=== PATIENT | male | born 1975 | race Caucasian/White ===

== ENCOUNTER → 2019-01-28 17:56 | Outpatient (CLI) | payer OTHER, SELFPAY ==
--- NOTE | 2019-01-28 17:57 | DI.MRI.S_ITS ---
PROCEDURE: MR LUMBAR SPINE WO CON INDICATIONS: Lumbar radiculopathy. TECHNIQUE: Noncontrast sagittal T1 spin echo and T2 fast echo, sagittal STIR, axial T1 and T2 fast spin echo through the lumbar spine. In cases with scoliosis, additional coronal T2 fast spin echo may be performed. COMPARISON: [facility], MR, L-SPINE WITHOUT CONTRAST, 06/04/2016, 12:38. [facility], MR, L-SPINE WITHOUT CONTRAST, 03/26/2011, 19:32. FINDINGS: Image quality: Excellent. Alignment and Curvature: There is normal bony alignment. Bone Marrow: Marrow is of normal overall signal. No acute vertebral body compression fractures. Spinal Cord: Conus medullaris terminates at the T1 level. Visualized cord demonstrates normal signal and size. Paraspinous Soft Tissues: No paravertebral masses. L1-L2: Normal appearance. L2-L3: Normal appearance. L3-L4: Normal appearance except for mild facet osteoarthritis without significant spinal or foraminal stenosis. L4-L5: There is a mild degree of degenerative disc it reduction and desiccation, and moderate facet osteoarthritis that results in mild narrowing of the neural foramen symmetric bilaterally with potential for mild impingement on the course of the L4 nerve roots equally. L5-S1: The degenerative disc disease at this level is moderately severe with [id number] articulation between the adjacent endplates. Mild grade 1 retrolisthesis is noted and facet osteoarthritis at this level is moderately severe on the left and moderate on the right. This results in asymmetric foraminal stenosis, moderately severe on the left and mild to moderate on the right. IMPRESSION: No trauma found, no disc herniation identified. There is a mild to moderate degree of degenerative disc disease best seen at L4-5 and especially L5-S1 where the foraminal stenosis is asymmetric, greater on the left than the right. Asymmetric radiculopathy involving the L5 nerve root likely is present on the left. Dictated by: Bowen Ott M.D. on 01/29/2019 at 10:40 Approved by: Bowen Ott M.D. on 01/29/2019 at 10:45
== END ==
PROVIDERS: Family Provider Family Medicine; PCP Family Medicine; Visit Provider Family Medicine
DX: M51.16 Intervertebral disc disorders with radiculopathy, lumbar region (principal); M51.17 Intervertebral disc disorders with radiculopathy, lumbosacral region; M48.061 Spinal stenosis, lumbar region without neurogenic claudication; M48.07 Spinal stenosis, lumbosacral region
CPT/HCPCS: 72148

== ENCOUNTER → 2019-03-24 08:24 | Outpatient (CLI) | payer OTHER, SELFPAY ==
[2019-03-24 08:36] LABS: Add Manual Diff / Slide Review NO; Basophils Absolute Auto 0 /uL (0-100); Basophils Percent Auto 0.5 % (0-2); Eosinophils Absolute Auto 100 /uL (0-450); Eosinophils Percent Auto 1.2 % (2-4); Hematocrit 42.4 % (41-53); Hemoglobin 14.3 g/dL (13.5-17.5); Lymphocytes Absolute Auto 1800 /uL (1100-4500); Lymphocytes Percent Auto 21.7 % (25-40); Mean Corpuscular HGB Conc 33.8 % (30-36); Mean Corpuscular Volume 88.8 fL (80-100); Monocytes Absolute Auto 600 /uL (0-900); Monocytes Percent Auto 6.7 % (3-14); Neutrophils Absolute Auto 5800 /uL (1500-7000); Neutrophils Percent Auto 69.9 % (50-75); Platelet Count 301 X10^3/uL (150-400); Red Blood Cell Count 4.77 X10^6/uL (4.5-5.9); Red Cell Distribution Width 13.7 % (11.6-14.8); White Blood Cell Count 8.3 X10^3/uL (4.5-11.0)
== END ==
PROVIDERS: Family Provider Family Medicine; PCP Family Medicine; Visit Provider Orthopaedic Surgery
DX: D72.89 Other specified disorders of white blood cells (principal)
CPT/HCPCS: 36415; 85025

== ENCOUNTER 2019-03-31 06:08 | Inpatient (IN) | payer OTHER, SELFPAY ==
[2019-03-17 11:31] VITALS: BMI 25.1
[2019-03-31] VITALS (18 sets, daily range): BP systolic 101–148; BP diastolic 66–95; PULSE 66–118; RESP 10–18; TEMP 36–37.7; O2SAT 91–100; BMI 22.6
--- NOTE | 2019-03-31 | DI.RAD.S_ITS ---
PROCEDURE: XR LUMBAR SPINE 2-3V INDICATIONS: L5-S1 TLIF TECHNIQUE: 2 operative views of the lumbar spine were acquired. COMPARISON: None. FINDINGS: AP and lateral operative films demonstrated posterior lateral duke and pedicle screw fixation and interbody disc material placement at L5-S1. IMPRESSION: Operative imaging demonstrates fusion at L5-S1. Dictated by: Keo Mcintyre M.D. on 03/31/2019 at 10:50 Approved by: Keo Mcintyre M.D. on 03/31/2019 at 10:51
[2019-03-31] MEDS: LACTATED RINGERS 1,000 ML 42 ML IV (07:02)
--- NOTE | 2019-03-31 07:20 | PM.PREOP ---
Pre-operative Note Interval Note History & Physical reviewed/Exam performed by Physician: Yes Changes to H&P: No
[2019-03-31] MEDS: CEFAZOLIN 2 GM/100 ML FROZ.PIGGY IV ×2 (07:55→16:22)
--- NOTE | 2019-03-31 08:31 | SUR.OPER ---
Prone on spine table, head in foam head support, padded chest and pelvic supports, gel pad at knees, lower legs supported by pillows; nipples, genitalia and toes free of pressure, arms secured on foam padded arm boards at <90 degrees abduction. Tape over blanket at thigh secured to table.
[2019-03-31] MEDS: THROMBIN (RECOMBINANT) 5,000 UNIT VIAL 5000 UNIT TOP (08:47)
[2019-03-31] MEDS: SODIUM CHLORIDE 0.9% 1,000 ML, GENTAMICIN 80 MG IRR (08:47)
[2019-03-31] MEDS: VANCOMYCIN 1,000 MG VIAL 1000 MG TOP (08:48)
[2019-03-31] MEDS: BUPIVACAINE 0.5% (PF) 4 ML, MORPHINE-PF 4 MG, BUTORPHANOL 1 MG, fentaNYL 100 MCG INJ (09:50)
--- NOTE | 2019-03-31 10:35 | PC.NURSE ---
Day shift: Pt not on AC unit at this time.
--- NOTE | 2019-03-31 10:44 | PM.OP.1 ---
Operative Date/Time/Diagnoses Date of procedure: 03/31/19 Time of procedure: 10:44 Pre-op diagnosis: Lumbar stenosis with radiculopathy Post-op diagnosis: same Procedure & Clinicians Procedure: L5-S1 TLIF (post/post innerbody fusion) with cage L5, S1 screws iliac crest bone graft aspirate L5-S1 laminectomy use of microscope placement of epidural catheter Same procedure as scheduled: Yes Indications: 43 year old male with intractable pain from lumbar stenosis.They had failed conservative management and requested operative intervention. Risks and benefits of surgery were discussed and appropriate consents were obtained. Surgeon: Amadeo Capellan Ingredient Scaler: Francia Vuong Anesthesia Type: General Operative Notes Findings: none Closure Type: primary Specimen(s): none sent Prosthetic devices, grafts, tissues, transplants, or devices: Globus Rise cage and MIS Creo screws Applied: catheter Estimated Blood Loss (mL): 50 Blood products transfused: none Procedure in detail: The patient was brought to the operating room and intubated on the table. A time-out was performed. They were then rolled over to the well-padded Lucius table in the prone position. Preoperative antibiotics were given. The back was prepped and draped in the standard sterile fashion. Using fluoroscopy, a 4 cm longitudinal incision was made to the left of the midline. We used Bovie to come down to and split the lumbodorsal fascia. Using fluoroscopy and monitoring, we then percutaneously placed Jamshidi needles down the pedicles of L5 and S1 on theleft side. These were changed out to guidewires and then we tapped and then placed the Globus Creo MIS screw shanks. We then opened up the retractors and used Bovie to clear up the posterolateral gutter as well as medially along the lamina to the spinous processes. A bur was used to decorticate the transverse process and ala. We brought in the microscope. Using a combination of bur and Kerrison rongeurs, a laminectomy was performed from the left side. We cleared over past the midline and carefully depressed the dura until we were able to decompress the opposite side. We cleared out the neural foramen. This completed the laminectomy at L5S1. We then began the TLIF prep. We finished off the facetectomy and cleared all the way back to the edge of the pedicles. We carefully cleaned up the remainder of the foramen until we could easily retract the exiting root as well as clearing medially below the dura and expose the disc space. The disc was prepped with bipolar and then an annulotomy was performed. We performed a diskectomy using a combination of paddles, lissette, pituitaries, and curettes. We distracted the disc using a paddle and locked the retractor in an open position. We then filled the disc space with Trifecta bone graft. We then placed the 7x30mm Globus Rise cage under fluoroscopy and then filled this in with more bone graft. The distraction on the retractor was released to compress down. This completed the posterior interbody fusion portion of the TLIF at L5S1. We then placed the screw heads, duke, and locked down the set screws. The wound was copiously irrigated. A small stab incision was made over the PSIS. We used a Jamshidi needle to aspirate several mL of bone marrow from the pelvis. This was mixed with the remaining Osteocel and combined with all of the locally harvested bone graft and placed in the posterolateral gutter for the posterior fusion of the TLIF at L5S1. An epidural catheter was then placed in the spinal canal by carefully depressing the dura and advancing it 6 cm cephalad under the remaining lamina without resistance. The muscle fascia was closed. The catheter was then injected with a solution containing 4 mL of 0.5% Marcaine, 1 mg Stadol, 4 mg Duramorph, and 100 mcg of fentanyl. This was injected without resistance and the catheter was pulled. We then went to the opposite side. Again using fluoroscopy, a 3 cm incision was made and Bovie was used to come down to split the fascia. Using neural monitoring and fluoroscopy, Jamshidi needles were advanced down the pedicles ofL5 and S1 on the right side. These were switched over guidewires, tapped, and screws placed. We then placed a duke and locked the set screws on this side. The wound was irrigated. The fascia was closed. Vancomycin powder was placed in the wounds. The superficial and skin were closed. A sterile dressing was placed. The patient was then rolled over extubated and brought to recovery room without complications. Complications: none Post-operative Condition: stable Disposition: PACU Plan for aftercare: inpatient. Up with physical therapy.
[2019-03-31] MEDS: HYDROMORPHONE 2 MG INJ 0.5 MG IV ×4 (11:10→11:30)
[2019-03-31] MEDS: fentaNYL 100 MCG/2 ML INJ 50 MCG IV (11:36)
[2019-03-31] MEDS: OXYCODONE IR 5 MG TABLET PO ×5 (11:41→20:13)
--- NOTE | 2019-03-31 13:16 | SUR.PHASEI ---
Pt transferred to room 202 via bed with all belongings. Last vital signs stable, pain improving and at tolerable level for pt; see flowsheet documentation for details. Report given to FÉLIX Liu prior to transfer. Noe to bedside upon arrival to room 202; handoff assessment completed. FÉLIX Liu to assume care of pt at this time.
[2019-03-31] MEDS: hydrOXYzine pamoate 25 MG CAPSULE PO (13:31)
[2019-03-31] MEDS: LACTATED RINGERS 1,000 ML 125 ML IV ×2 (13:32→21:51)
[2019-03-31] MEDS: CELECOXIB 200 MG CAPSULE 400 MG PO (13:34)
--- NOTE | 2019-03-31 13:52 | CM.DANOTE ---
DCP brief assessment: EMR reviewed: Patient is a 43 yr old male admitted for L5-S1 TLIF. performed by Dr. Capellan. patients PCP is listed as Otilia Rider. Patients next of kin is listed as Felipe Ibanez (spouse) [phone]. PT and OT evaluations pending. Patient was not in his room at time of CM visit. Insurance: 1st payer: [employer] 2nd payer: self pay. Discharge plan: patient was not in his room at time of CM visit. Patient will need a brief in-person assessment tomorrow by CM department 04/01/2019. D/c planning to be completed once patient has PT and OT evals. Génesis Bucio RN. Discharge Planning/Care Management CM Discharge Assessment Start: 03/31/19 13:48 Freq: Status: Active Protocol: Document 03/31/19 13:49 HS (Rec: 03/31/19 13:51 HS [id number]) Discharge Planning Assessment Assigned Radiochemical Technician Génesis Bucio RN DPOA/Assigned Designee Name Felipe Ibanez (Spouse) Advance Directives? No: Pt declines further information History Provided By Medical Record Prior Living Arrangements House Household Members spouse,children Comment Patient not in room at time of CM Visit. Therapy evals pending Discharge Plan Home Transportation Arrangement Family Review Status In Process Next Review Type Continued Stay Review Pre-Anesthesia Assessment Start: 03/17/19 11:31 Freq: Status: Active Protocol: Document 03/17/19 11:31 CAB (Rec: 03/17/19 11:51 CAB [id number]) Pre-Anesthesia Assessment Patient Also Known As (SHANTEL Pop Patient Information Reviewed Via Phone Assessment Assessment Completed With Patient Primary Care Provider Otilia Rider Seen Specialist in Last 12 Months Yes Specialist Seen Orthopedist Primary Language Hungarian Acute Care Assistant Required No Height 180.34 cm Weight 81.647 kg Body Mass Index (BMI) 25.1 Hearing Ability Normal Visual Impairment No Limitations Visual Assist None Dentition Type Teeth, Natural Present,Teeth, Missing Barriers to Learning None Hx Anesthesia Reactions No Hx Family Anesthesia Reaction No Hx Malignant Hyperthermia No Hx Blood Transfusions No Anesthesia Review Requested No alcohol intake current Alcohol Intake Frequency Other: Occasional Smoking Status Former smoker Tobacco type cigarettes how long ago did patient quit smoking Quit 8-10 years ago Substance Use Type does not use Pain Present Pain Reported Musculoskeletal Symptoms Abnormal Gait,Back Pain, Difficulty Walking,Muscle Cramps,Muscle Spasms,Muscle Weakness,Neck Pain,Numbness, Radiating Pain into Limb, Tingling History of Falling (Recent or History of No ) Patient is completely paralyzed or No completely immobile Mental Status Oriented to own ability Is patient on oxygen? No Does patient have BENITEZ/SOB No Hx Sleep Apnea No Currently Taking a Beta Lizzy No Can You Climb a Flight of Stairs Without Yes SOB Hx Chest Pain No Hx SOB No Hx Syncope or Dizziness No Anti-Coagulant Therapy No Has a Surgical Services Asst No Cardiac Testing No Hx Pacemaker/ICD No Pacemaker Rep Required? No Cardiac Clearance Received Not Applicable Diet Type At Home Regular dysphagia No Urinary Catheter Present No Hx Urinary Self Catheterization No Diabetes No Hx Drug Resistant Organism No Presence of External or Internal Medical Yes: Hardware left hand Devices Have you traveled outside the [facility] in the last 30 days? Marital Status Lives With spouse,children Prior Living Arrangements House Number of Floors (Floors) One Floor Support System Significant Other Does the Patient Have Assistance After Yes Surgery Patient Discharge Plan Description Return Home Comment Pt advised 2 day length of stay per surgeon Feels Safe in Current Environment Yes Been Physically Hurt or Threatened By a No Person in Current Environment Do you have thoughts of harming yourself None or others? Are you currently considering suicide? No Do you have a plan to hurt yourself or No Plan others? Do You Have Any Spiritual Beliefs That No May Affect Your HC Choices? Do You Have Any Cultural Practices That No May Affect Your HC Choices? Comment Quaker Who Can We Speak to About Patient's Care Family, friends Identifying Code for Release of Patient Declines to issue Information Health Care Proxy/Next of Kin Felipe () Health Care Proxy Emergency Contact Name Felipe () Emergency Contact Advance Directives? No: Pt declines further information PAC Instructions Do not shave/clip surgical site,Durable medical equipment ,Medications to take/avoid, Nasal antibiotic,No ETOH/ petroleum product on skin DOS, NPO,Pre-surgical wash,Sturdy shoes/comfortable clothes,Do not bring valuables and remove jewelry
[2019-03-31] MEDS: HYDROMORPHONE 0.5 MG INJ IV ×3 (14:18→20:21)
--- NOTE | 2019-03-31 17:08 | PT.IIE ---
Current Diagnoses Spinal stenosis, lumbar region with neurogenic claudication (03/31/19) Strain of muscle, fascia and tendon of lower back, subsequent encounter (03/31/19) Surgery Performed Operation Date: 03/31/19 07:45 Actual Procedures p L5S1 laminectomy & instrumentated fusion (TLIF) w/ bone graft - Amadeo Capellan MD Surgical History (Last Updated 03/17/19 @ 11:35 by Ludy Mejia, RN) History of oral surgery Hx of hand surgery (Acute) Hx of removal of neck cyst (Resolved 2013) Status post hernia repair Status post knee surgery Medical History (Last Updated 03/17/19 @ 11:38 by Ludy Mejia RN) ADHD (attention deficit hyperactivity disorder) (Chronic Unknown) Ankle pain (Resolved Unknown) Chronic back pain (Chronic Unknown) Fractures (Resolved 2002) Generalized headaches (Chronic Unknown) HTN (hypertension) (Acute) Insomnia (Acute) Migraines (Chronic Unknown) Shoulder pain (Resolved Unknown) Physical Therapy Inpatient Evaluation/Re-Eval M1 PT/OT-IP Prior Functional Status Start: 03/31/19 14:21 Freq: NEEDED Status: Active Protocol: Document 03/31/19 16:48 AW (Rec: 03/31/19 17:08 AW [email or web address]) Medical Review Prior Functional Status Medical History Reviewed Yes Diet/Fluid Consistency Regular Communication Able to make needs known Mobility and Gait Independent with all functional mobility. No need for assistive device. No limit to ambulation distance Activities of Daily Living and IADL's Independent Social History Household Members spouse,children Living Arrangements House Number of Floors (Floors) One Floor Number of Stairs To Enter/Railing? 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 [employer] M2 PT-IP Current Condition Start: 03/31/19 14:21 Freq: NEEDED Status: Active Protocol: Document 03/31/19 16:48 AW (Rec: 03/31/19 17:08 AW [email or web address]) Physical Therapy Current Condition Current Condition Evaluation Date 03/31/19 Treatment Diagnosis s/p L5-S1 laminectomy, TLIF Precautions Lumbar Precautions Log Roll,No Twisting,Limit Bending,Lifting Restriction of 10 lbs,Gait Belt above Incisional Area Weight Bearing Status Weight Bearing Status Full Weight Bearing M3 PT-IP Subjective Start: 03/31/19 14:21 Freq: NEEDED Status: Active Protocol: Document 03/31/19 16:48 AW (Rec: 03/31/19 17:08 AW [email or web address]) Subjective Physical Therapy Visit Type Type Initial Evaluation Visit Start Time 16:15 Visit Stop Time 16:44 Total Visit Minutes 29 Notes Coordinated visit with RN for medication timing Number of PLUG CUTTER Visits 0 Physical Therapy Visit Comments Patient Comments Pt has pain at rest but is willing to participate with PT Patient Goals Pt plans to discharge home with his 's assistance. She is planning to take a few days off from work when pt discharges. Therapy Pain Assessment Pain When Pain Assessed During Mobility Pain Present Pain Present Pain Reported Location Lower Back Intensity 5 Scale Used Numeric (1 - 10) Pain Management Techniques Modification of Treatment,Re- positioning,Timing of Activity with Medications M4 PT-IP Mobility and Gait Start: 03/31/19 14:21 Freq: NEEDED Status: Active Protocol: Document 03/31/19 16:48 AW (Rec: 03/31/19 17:08 AW [email or web address]) PT-Bed Mobility Assessment Rolling Type of Rolling Log Rolling Level of Assist Standby Assistance Supine to Sit Supine to Sit Standby Assistance Scooting Scooting to Edge of Bed Standby Assistance PT-Transfer Assessment Sit to and From Stand Sit to and from Stand Contact Guard Assistance,1 Person Assistance,Use of Upper Extremities Equipment Transfer Assistive Device Gait Belt,Front Wheeled Walker Orthotic/Prosthetic Devices or Brace: No Transfers Transfer Destination Chair Transfer Technique pt ambulated with FWW Transfer Ability Level of Assist Contact Guard Assistance Comments Mobility Comments Pt required CGA for log roll and sit to stand transfer. Also required verbal cues for sequencing. He was able to maintain neutral posture throughout. Gait Assessment Gait Gait Assistance Required: Standby Assistance Distance (Feet) 100 Able to Maintain Weight Bearing Status Yes During Gait Assistive Devices Assistive Device Gait Belt,Front Wheeled Walker Orthotic/Prosthetic Devices or Brace: No Gait Deviations General Gait Pattern Decreased Stride Length, Decreased Feet Clearance Factors Limiting Gait Function Factors Limiting Gait Function Decreased Activity Tolerance, Decreased Strength,Pain Comments Gait Comments Pt required SBA for ambulation using FWW. Gait was characterized by slow movement and decreased step length bilaterally PT-Balance Assessment Sitting Balance and Reactions Static Sitting Balance Ability Good Dynamic Sitting Balance Ability Good Standing Balance and Reactions Static Standing Balance Ability Good Dynamic Standing Balance Ability Good Device Used FWW M5 PT-IP Objective Assessments Start: 03/31/19 14:21 Freq: NEEDED Status: Active Protocol: Document 03/31/19 16:48 AW (Rec: 03/31/19 17:08 AW [email or web address]) Orientation Orientation/Cognition Level of Alertness Alert Orientation Name,Date,Place,Situation Language Function Ability No Deficits Noted Safety Awareness Understands Safety Issues Memory Description No Deficits Noted Gross Range of Motion Upper Extremity ROM Assessment Within Functional Limits Lower Extremity ROM Assessment Within Functional Limits Strength Upper Extremity Strength Assessment Within Functional Limits Lower Extremity Strength Assessment Within Functional Limits Coordination Assessment Gross Coordination Gross Coordination WNL Sensation Assessment Sensation Gross Sensation WNL Comments Sensation Comments No deficits on exam. M6 PT-IP Treatment Start: 03/31/19 14:21 Freq: NEEDED Status: Active Protocol: Document 03/31/19 16:48 AW (Rec: 03/31/19 17:08 AW [email or web address]) Physical Therapy Treatment Equipment Issued Equipment Type and Company Educated pt on PT plan of care , post-op spinal precautions, and safe use of FWW M7 PT-IP Assessment and Plan Start: 03/31/19 14:21 Freq: NEEDED Status: Active Protocol: Document 03/31/19 16:48 AW (Rec: 03/31/19 17:08 AW [email or web address]) PT Summary Assessment and Plan Potential Rehabilitation Potential Good Status of Condition at Evaluation Evolving Summary Impairments Pain,Bed Mobility,Transfers, Gait,Activity Tolerance Assessment Summary Pt is a 43 yo man seen on POD0 following L5-S1 laminectomy/ TLIF. PLOF: Pt was independent in all regards with no need for assistive device and no limitation in ambulation distance or terrain. CLOF: Pt required CGA for log roll and transfers, SBA for ambulation with FWW. Pt is steady of his feet with FWW, including turns with good attention to spinal precautions. PT recommends discharge to home with spouse assist and outpatient PT when he meets functional goals of this plan of care. Goals Bed Mobility Goal Standby Assistance Transfer Goal Standby Assistance Gait Goal Standby Assistance,Front Wheel Walker Gait Distance 150 Other Goals up/down 5 steps with unilateral railing (either side) SBA Days to Meet Goals 1 Frequency of Treatment Frequency Of Treatment Twice a Day Treatment Plan Physical Therapy Treatment Plan Bed Mobility Training,Transfer Training,Gait Training, Therapeutic Exercise,Balance Retraining,Post Op Education, Discharge Planning,Hot or Cold Pack,Neuromuscular Re-ed, Coordination Retraining,Manual Therapy Other Recommendations and Next Treatment progress gait distance with Focus FWW; stair training Recommendations To Nursing Amount of Assist Needed Standby Assistance,1 Person Assist Discharge Recommendations PT Discharge Recommendations Home with Assistance, Outpatient PT
[2019-03-31] MEDS: CELECOXIB 200 MG CAPSULE PO (20:13)
[2019-03-31] MEDS: SENNOSIDES 8.6 MG TABLET 17.2 MG PO (20:13)
[2019-03-31] MEDS: GABAPENTIN 300 MG CAPSULE PO (20:13)
[2019-03-31] MEDS: DOCUSATE 100 MG CAPSULE PO (20:13)
[2019-04-01] MEDS: CEFAZOLIN 2 GM/100 ML FROZ.PIGGY IV (00:06)
[2019-04-01 01:22] VITALS: BP 122/72; PULSE 80; RESP 18; TEMP 36.8; O2SAT 97
[2019-04-01] MEDS: OXYCODONE IR 5 MG TABLET 10 MG PO ×6 (01:34→21:27)
[2019-04-01] MEDS: hydrOXYzine pamoate 25 MG CAPSULE PO ×2 (01:34→09:27)
--- NOTE | 2019-04-01 03:27 | PC.NURSE ---
Addendum entered by Jillian Curran R.N. 04/01/19 03:39: pt's island dressing is clean/dry and intact. Original Note: Pt VSS, lung sounds clear bilaterally. Pt has 7/10 pain level medicated w/ oxycodone 10mg Q4, denies nausea. Pt refuses to wear SCD's, was educated about the use of SCD's, is using IS. Pt has been instructed about the use of his call light and it is within reach.
[2019-04-01 05:50] VITALS: BP 114/64; PULSE 63; RESP 16; TEMP 36.3; O2SAT 97
[2019-04-01 06:00] LABS: Hematocrit 32.3 % (41-53); Hemoglobin 11.3 g/dL (13.5-17.5)
--- NOTE | 2019-04-01 08:02 | PM.PNPO.1 ---
Subjective Subjective Date Patient Seen: 04/01/19 Time Patient Seen: 08:02 Interval history: He is doing well. Back pain 10/08. No leg pain Exam Vital Signs (past 8 hours): - 04/01/19 01:22 04/01/19 05:50 Temperature 98.3 F 97.4 F L Pulse Rate 80 63 Respiratory Rate 18 16 Blood Pressure 122/72 114/64 Pulse Oximetry 97 97 Oxygen Delivery Method Room Air Oxygen Flow Rate 0 Const Orientation: alert and oriented x3 Back/Spine/Pelvis Other: CDI. 5/5 motor both lower extremities. Objective Labs Result Diagrams: 04/01/19 05:40 Labs: Laboratory Results - last 24 hr 04/01/19 05:40 Hgb 11.3 L Hct 32.3 L Assessment & Plan Post-op Postoperative Procedures: Procedures Operation Date: 03/31/19 07:45 Actual Procedures Side Surgeon p L5S1 laminectomy & instrumentated fusion (TLIF) w/ bone graft Amadeo Capellan MD he is doing well. Mobilize. Anticipate discharge tomorrow. Quality VTE Deep Vein Thrombosis/Pulmonary Embolism Present on Admission: No
[2019-04-01 09:01] VITALS: BP 154/93; PULSE 62; RESP 16; TEMP 37.1; O2SAT 98
[2019-04-01] MEDS: CELECOXIB 200 MG CAPSULE PO ×2 (09:25→21:27)
[2019-04-01] MEDS: GABAPENTIN 300 MG CAPSULE PO ×2 (09:26→21:27)
[2019-04-01] MEDS: DOCUSATE 100 MG CAPSULE PO ×2 (09:26→21:26)
--- NOTE | 2019-04-01 10:47 | PC.NURSE ---
Addendum entered by Dyan Lyn R.N. 04/01/19 13:43: MS/PAIN - ambul w/phys therapy using fww into hallway, gait steady, ret to chair, after lunch describes back discomfort 5 0n scale 0/10, given 10mg oxycodone and 650mg po tylenol for afternoon mobilization with PT. Original Note: AM NOTE - awakens easily, after breakfast, given 10mg po oxycodone for back discomfort 6 on scale 0/10, states when sat up earlier did have spasms and added 25mg po vistaril, + cms, hx sciatica and some numbness lle, able wiggle toes, declines footie scd now and rationale explained for their use while in bed, denies nausea, bs clear, using is, hr 88, holloway w/clear yellow urine, barrier dsg intact with some shadow drainage, no leakage.
--- NOTE | 2019-04-01 11:43 | PT.IPTN ---
Current Diagnoses Spinal stenosis, lumbar region with neurogenic claudication (03/31/19) Strain of muscle, fascia and tendon of lower back, subsequent encounter (03/31/19) Surgery Performed Operation Date: 03/31/19 07:45 Actual Procedures p L5S1 laminectomy & instrumentated fusion (TLIF) w/ bone graft - Amadeo Capellan MD Physical Therapy Treatment Note M2 PT-IP Current Condition Start: 03/31/19 14:21 Freq: NEEDED Status: Active Protocol: Document 03/31/19 16:48 AW (Rec: 03/31/19 17:08 AW [email or web address]) Physical Therapy Current Condition Current Condition Evaluation Date 03/31/19 Treatment Diagnosis s/p L5-S1 laminectomy, TLIF Precautions Lumbar Precautions Log Roll,No Twisting,Limit Bending,Lifting Restriction of 10 lbs,Gait Belt above Incisional Area Weight Bearing Status Weight Bearing Status Full Weight Bearing M3 PT-IP Subjective Start: 03/31/19 14:21 Freq: NEEDED Status: Active Protocol: Document 04/01/19 11:34 AW (Rec: 04/01/19 11:43 AW [email or web address]) Subjective Physical Therapy Visit Type Type Treatment Note Visit Start Time 11:16 Visit Stop Time 11:33 Total Visit Minutes 18 Notes Pt medicated 2 hours ago, but agreed to mobilize. 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 He is hoping to discharge tomorrow. Therapy Pain Assessment Pain When Pain Assessed During Mobility Pain Present Pain Present Reassessed Location Lower Back Intensity 5 Scale Used Numeric (1 - 10) Pain Management Techniques Modification of Treatment,Re- positioning,Timing of Activity with Medications M4 PT-IP Mobility and Gait Start: 03/31/19 14:21 Freq: NEEDED Status: Active Protocol: Document 04/01/19 11:34 AW (Rec: 04/01/19 11:43 AW [email or web address]) PT-Bed Mobility Assessment Rolling Type of Rolling Log Rolling Level of Assist Standby Assistance Supine to Sit Supine to Sit Standby Assistance Scooting Scooting to Edge of Bed Standby Assistance PT-Transfer Assessment Sit to and From Stand Sit to and from Stand Standby Assistance,Use of Upper Extremities Equipment Transfer Assistive Device Gait Belt,Front Wheeled Walker Orthotic/Prosthetic Devices or Brace: No Transfers Transfer Destination Chair Transfer Technique pt ambulated with FWW Transfer Ability Level of Assist Standby Assistance Comments Mobility Comments Pt required decreased level of assist for transfers. Gait Assessment Gait Gait Assistance Required: Standby Assistance Distance (Feet) 175 Able to Maintain Weight Bearing Status Yes During Gait Assistive Devices Assistive Device Gait Belt,Front Wheeled Walker Orthotic/Prosthetic Devices or Brace: No Gait Deviations General Gait Pattern Decreased Stride Length, Decreased Feet Clearance Factors Limiting Gait Function Factors Limiting Gait Function Decreased Activity Tolerance, Decreased Strength,Pain Comments Gait Comments Pt progressed gait distance using FWW SBA. Stair Climbing Assessment Evaluation Level of Assist On Stairs Standby Assistance Devices Stair Climbing Assistive Devices Right Railing Technique/Endurance Stair Climbing Direction Ascend and Descend Stair Climbing Technique Step Over Step,Step to Step Number of Steps Climbed 3 Stair Climbing Set # Repetitions (reps) 2 Comments Stair Climbing Comments Pt used bilateral rails and step over step pattern for first set, right rail only and step-to pattern for second set. Both conditions required SBA M5 PT-IP Objective Assessments Start: 03/31/19 14:21 Freq: NEEDED Status: Active Protocol: Document 03/31/19 16:48 AW (Rec: 03/31/19 17:08 AW [email or web address]) Orientation Orientation/Cognition Level of Alertness Alert Orientation Name,Date,Place,Situation Language Function Ability No Deficits Noted Safety Awareness Understands Safety Issues Memory Description No Deficits Noted Gross Range of Motion Upper Extremity ROM Assessment Within Functional Limits Lower Extremity ROM Assessment Within Functional Limits Strength Upper Extremity Strength Assessment Within Functional Limits Lower Extremity Strength Assessment Within Functional Limits Coordination Assessment Gross Coordination Gross Coordination WNL Sensation Assessment Sensation Gross Sensation WNL Comments Sensation Comments No deficits on exam. M6 PT-IP Treatment Start: 03/31/19 14:21 Freq: NEEDED Status: Active Protocol: Document 04/01/19 11:34 AW (Rec: 04/01/19 11:43 AW [email or web address]) Physical Therapy Treatment Other Treatments Other Treatment Performed Pt able to repeat back spinal precautions without cueing. M7 PT-IP Assessment and Plan Start: 03/31/19 14:21 Freq: NEEDED Status: Active Protocol: Document 04/01/19 11:34 AW (Rec: 04/01/19 11:43 AW [email or web address]) PT Summary Assessment and Plan Summary Assessment Summary Pt required decreased level of assist for all mobility and was able to progress gait distance with FWW and navigate stairs SBA. He did attempt to twist and look over his right shoulder when prompted. He needs functional reinforcement of spinal precautions. Goals Bed Mobility Goal Standby Assistance Transfer Goal Standby Assistance Gait Goal Standby Assistance,Front Wheel Walker Gait Distance 150 Other Goals up/down 5 steps with unilateral railing (either side) SBA Days to Meet Goals 1 Frequency of Treatment Frequency Of Treatment Twice a Day Recommendations To Nursing Amount of Assist Needed Standby Assistance,1 Person Assist Discharge Recommendations PT Discharge Recommendations Home with Assistance, Outpatient PT
[2019-04-01 12:30] VITALS: BP 130/70; PULSE 85; RESP 16; TEMP 37.3; O2SAT 98
[2019-04-01] MEDS: ACETAMINOPHEN 325 MG TABLET 650 MG PO ×2 (12:52→21:27)
--- NOTE | 2019-04-01 14:57 | CM.DPNOTE ---
DCP Cont: Reviewed chart. Met w/pt, explained SW role. Pt does not expect to have any SW needs upon DC but grateful for the visit. Pt feels he has support from his family for assist as needed. PT has cleared pt for return home. P: DC home when medically cleared. TIRSO
[2019-04-01 15:15] VITALS: BP 123/70; PULSE 94; RESP 18; TEMP 37.3; O2SAT 98
--- NOTE | 2019-04-01 15:19 | OT.IP.EVAL ---
Current Diagnoses Spinal stenosis, lumbar region with neurogenic claudication (03/31/19) Strain of muscle, fascia and tendon of lower back, subsequent encounter (03/31/19) Surgery Performed Operation Date: 03/31/19 07:45 Actual Procedures p L5S1 laminectomy & instrumentated fusion (TLIF) w/ bone graft - Amadeo Capellan MD Past Medical History (Last Updated 03/17/19 @ 11:38 by Ludy Mejia RN) ADHD (attention deficit hyperactivity disorder) (Chronic Unknown) Ankle pain (Resolved Unknown) Chronic back pain (Chronic Unknown) Fractures (Resolved 2002) Generalized headaches (Chronic Unknown) HTN (hypertension) (Acute) Insomnia (Acute) Migraines (Chronic Unknown) Shoulder pain (Resolved Unknown) Surgical History (Last Updated 03/17/19 @ 11:35 by Ludy Mejia RN) History of oral surgery Hx of hand surgery (Acute) Hx of removal of neck cyst (Resolved 2013) Status post hernia repair Status post knee surgery Occupational Therapy Inpatient Evaluation/Re-Eval M1 PT/OT-IP Prior Functional Status Start: 03/31/19 14:21 Freq: NEEDED Status: Active Protocol: Document 04/01/19 15:01 [facility] (Rec: 04/01/19 15:19 [facility] [id number]) Medical Review Prior Functional Status Medical History Reviewed Yes Diet/Fluid Consistency Regular Communication Able to make needs known Mobility and Gait Independent with all functional mobility. No need for assistive device. No limit to ambulation distance Activities of Daily Living and IADL's Independent Social History Household Members spouse,children Living Arrangements House Number of Floors (Floors) One Floor Number of Stairs To Enter/Railing? 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 [employer] M2 OT-IP Current Condition Start: 04/01/19 08:23 Freq: Status: Active Protocol: Document 04/01/19 15:01 [facility] (Rec: 04/01/19 15:19 [facility] [id number]) Occupational Therapy Current Condition Current Condition Evaluation Date 04/01/19 Treatment Diagnosis L5-S1 LAminectomy, TLI$ Diagnosis Onset Date 03/31/19 Post Operative Precautions Lumbar Precautions Log Roll,No Twisting,Limit Bending,Lifting Restriction of 10 lbs,Gait Belt above Incisional Area Weight Bearing Status Weight Bearing Status Weight Bear as Tolerated M3 OT- IP Subjective and Pain Start: 04/01/19 08:23 Freq: Status: Active Protocol: Document 04/01/19 15:01 [facility] (Rec: 04/01/19 15:19 [facility] [id number]) OT- Subjective Occupational Therapy Visit Type Type Initial Evaluation Visit Start Time 13:35 Visit Stop Time 14:05 Total Visit Minutes 30 Occupational Therapy Visit Comments Patient Comments Pt agreeable to do OT eval, pt 's present for end of the session. Patient/Caregiver Goals To go home. OT Pain Assessment Pain When Pain Assessed At Rest Pain Present Pain Present Pain Reported Location Lower Back Intensity 3 Scale Used Numeric (1 - 10) M4 OT- IP ADL's Start: 04/01/19 08:23 Freq: Status: Active Protocol: Document 04/01/19 15:01 [facility] (Rec: 04/01/19 15:19 [facility] [id number]) OT [id number]-[id number] General Evaluation Self-Feeding Ability Independent OT ADL-Grooming General Evaluation Grooming Ability Standby Assistance Areas Needing Assistance Retrieving/Set-up of Grooming Items Comments OT Grooming Comments set-up , vc to keep FWW in front of him. OT ADL-Oral Care General Eval Oral Care Ability Independent OT ADL-Dressing General Eval Lower Body Dressing Ability Maximum Assistance Areas Needing Assistance Socks Comments OT Dressing Comments Issued pt LB adaptive equipment so able to be independent for LB dressing needs now. OT ADL-Toileting Comments OT Toileting Comments Pt still having holloway in. Educated to stand with FWW over the toilet or sit . Pt states sits at night to urinate. In addition, pt states prior would stand to wipe due to his pain. OT ADL-Bathing Comments OT Bathing Comments Pt has jacuzzi tub with two step and no rail to hold and standard tub/shower. Suggested to use tub/shower and therefore able to hold to wall to help step in and also with assist of . Encouraged pt to get shower chair as pt states likes to take long showers. To do caregiver training and shower tomorrow with pt's . M5 OT- IP IADL's Start: 04/01/19 08:23 Freq: Status: Active Protocol: Document 04/01/19 15:01 [facility] (Rec: 04/01/19 15:19 [facility] [id number]) OT-Instrumental Activities of Daily Living Home Safety Awareness Home Safety Comments At this time pt off of work for 6weeks and states and other family members to be with him initially 24/7 to assist for all needs. Medication Management Medication Management No Deficits Identified Money Management Money Management Comments Pt's does all finances. M6 OT- IP Functional Cognition Start: 04/01/19 08:23 Freq: Status: Active Protocol: Document 04/01/19 15:01 [facility] (Rec: 04/01/19 15:19 [facility] [id number]) Cognitive Factors Limiting Selfcare Function Cognitive Ability Level of Alertness Alert Patient Orientation Name,Place,Situation Attention Span Ability Capable of Focused Attention, Capable of Sustained Attention Ability to Follow Commands Able to Follow One Step Commands Memory Description No Deficits Noted Safety Awareness Underestimates Need for Assistance Problem Solving Ability Needs Assist to Identify Solutions Cognitive Comments Cognitive Assessment Comments Reminders to use FWW at all times at this time as a little unsteady without use of FWW and also to refer to PT for input and recommnedations for mobility needs. Pt a bit impulsive and needing vc to slow down. OT- Vision and Hearing OT- Hearing Assessment OT- Hearing Assessment WFL OT- Vision Assessment Visual Acuity WFL M7 OT- IP Mobility and Balance Start: 04/01/19 08:23 Freq: Status: Active Protocol: Document 04/01/19 15: [facility] (Rec: 04/01/19 15:19 [facility] [id number]) OT- Bed Mobility Assessment Rolling Level of Assistance Standby Assistance OT-Transfer Assessment Sit to and From Stand Sit to and from Stand Standby Assistance Transfers Transfer Ability Standby Assistance Technique Transfer Destination Bed,Chair,Toilet Transfer Technique Stand Step Pivot Devices Transfer Assistive Devices Gait Belt,Front Wheeled Walker Comments Mobility Comments SBA with all mobility needs. Occasional cues to be sure to bend at hips and lean forwards and straighten legs out to stand and to reach with his bottom to sitting surface before sitting down. Encourage pt to use FWW especially for uneven terrain and start off with level surfaces. In addition to have someone with him when trying to negotiate various surfaces and use of gait belt. OT- Gait Assessment Gait Gait Assistance Required: Standby Assistance Assistive Devices Assistive Device Gait Belt,Front Wheeled Walker Comments Gait Ability Comments SBA with FWW in the room. Close SBA /CGA without walker and no device. OT- Balance Assessment Sitting Balance and Reactions Static Sitting Balance Ability Normal Dynamic Sitting Balance Ability Normal Standing Balance and Reactions Static Standing Balance Ability Good Dynamic Standing Balance Ability Fair M8 OT- IP Objective Assessments Start: 04/01/19 08:23 Freq: Status: Active Protocol: Document 04/01/19 15: [facility] (Rec: 04/01/19 15:19 [facility] [id number]) OT Gross Range of Motion Upper Extremity Range of Motion Assessment Within Functional Limits OT Strength Upper Extremity Strength Assessment Within Functional Limits M9 OT- IP Assessment and Plan Start: 04/01/19 08:23 Freq: Status: Active Protocol: Document 04/01/19 15: [facility] (Rec: 04/01/19 15: [facility] [id number]) OT Summary Assessment and Plan Potential Rehabilitation Potential Excellent Analytic Complexity at Evaluation Low Summary OT Impairments Pain,Functional Mobility, Dressing,Toileting,Bathing, Shower Transfers Progress Towards Goals Progressing Toward Goals Assessment Summary Pt low complexity and main barrier is decreased independence with ADL's, needing cues to slow down and incorporate back precautions. Pt's to have good family support and looking to go home tomorrow. OT to do training for shower with pt and tomorrow, to help determine the need for shower chair at home. Goals Dressing Goal Independent Toileting Goal Independent Bathing Goal Standby Assistance Toilet Transfer Goal Independent Shower Transfer Goal Standby Assistance Days to Meet Goals 2 Frequency of Treatment Frequency Of Treatment Once a Day Treatment Plan OT Treatment Plan ADL Training,Functional Mobility,Patient/Family Education,Discharge Planning Other Treatment Recommendations and Next shower Treatment Focus Discharge Recommendations OT Discharge Recommendations Home with Assistance Home Equipment Needs shower chair
--- NOTE | 2019-04-01 16:26 | PT.IPTN ---
Current Diagnoses Spinal stenosis, lumbar region with neurogenic claudication (03/31/19) Strain of muscle, fascia and tendon of lower back, subsequent encounter (03/31/19) Surgery Performed Operation Date: 03/31/19 07:45 Actual Procedures p L5S1 laminectomy & instrumentated fusion (TLIF) w/ bone graft - Amadeo Capellan MD Physical Therapy Treatment Note M2 PT-IP Current Condition Start: 03/31/19 14:21 Freq: NEEDED Status: Active Protocol: Document 03/31/19 16:48 AW (Rec: 03/31/19 17:08 AW [email or web address]) Physical Therapy Current Condition Current Condition Evaluation Date 03/31/19 Treatment Diagnosis s/p L5-S1 laminectomy, TLIF Precautions Lumbar Precautions Log Roll,No Twisting,Limit Bending,Lifting Restriction of 10 lbs,Gait Belt above Incisional Area Weight Bearing Status Weight Bearing Status Full Weight Bearing M3 PT-IP Subjective Start: 03/31/19 14:21 Freq: NEEDED Status: Active Protocol: Document 04/01/19 16:24 [facility] (Rec: 04/01/19 16:26 [facility] [email or web address]) Subjective Physical Therapy Visit Type Type Treatment Note Visit Start Time 16:10 Visit Stop Time 16:21 Total Visit Minutes 11 Number of SYNTHETIC FILAMENT SPINNER Visits 1 Physical Therapy Visit Comments Patient Comments Pt states he is tired. Therapy Pain Assessment Pain When Pain Assessed At Rest Pain Present Pain Present Reassessed Location Lower Back Intensity 3 Scale Used Numeric (1 - 10) M4 PT-IP Mobility and Gait Start: 03/31/19 14:21 Freq: NEEDED Status: Active Protocol: Document 04/01/19 16:24 [facility] (Rec: 04/01/19 16:26 [facility] [email or web address]) PT-Bed Mobility Assessment Rolling Type of Rolling Log Rolling Level of Assist Standby Assistance Supine to Sit Supine to Sit Standby Assistance Sit to Supine Sit to Supine Standby Assistance Scooting Scooting to Edge of Bed Standby Assistance PT-Transfer Assessment Sit to and From Stand Sit to and from Stand Standby Assistance,Use of Upper Extremities Equipment Transfer Assistive Device Gait Belt Orthotic/Prosthetic Devices or Brace: No Transfers Transfer Destination Chair Transfer Ability Level of Assist Standby Assistance Gait Assessment Gait Gait Assistance Required: Standby Assistance Distance (Feet) 220 Able to Maintain Weight Bearing Status Yes During Gait Assistive Devices Assistive Device Gait Belt Orthotic/Prosthetic Devices or Brace: No Gait Deviations General Gait Pattern Decreased Stride Length, Decreased Feet Clearance Factors Limiting Gait Function Factors Limiting Gait Function Decreased Activity Tolerance, Decreased Strength,Pain M5 PT-IP Objective Assessments Start: 03/31/19 14:21 Freq: NEEDED Status: Active Protocol: Document 03/31/19 16:48 AW (Rec: 03/31/19 17:08 AW [email or web address]) Orientation Orientation/Cognition Level of Alertness Alert Orientation Name,Date,Place,Situation Language Function Ability No Deficits Noted Safety Awareness Understands Safety Issues Memory Description No Deficits Noted Gross Range of Motion Upper Extremity ROM Assessment Within Functional Limits Lower Extremity ROM Assessment Within Functional Limits Strength Upper Extremity Strength Assessment Within Functional Limits Lower Extremity Strength Assessment Within Functional Limits Coordination Assessment Gross Coordination Gross Coordination WNL Sensation Assessment Sensation Gross Sensation WNL Comments Sensation Comments No deficits on exam. M6 PT-IP Treatment Start: 03/31/19 14:21 Freq: NEEDED Status: Active Protocol: Document 04/01/19 16:24 [facility] (Rec: 04/01/19 16:26 [facility] [email or web address]) Physical Therapy Treatment Education Education Provided Precautions M7 PT-IP Assessment and Plan Start: 03/31/19 14:21 Freq: NEEDED Status: Active Protocol: Document 04/01/19 16:24 [facility] (Rec: 04/01/19 16:26 [facility] [email or web address]) PT Summary Assessment and Plan Summary Assessment Summary Pt able to progress gait distance without AD. He was safe and stable with mobility without AD. Pt safe for home D /C when medically stable. Frequency of Treatment Frequency Of Treatment Twice a Day Recommendations To Nursing Amount of Assist Needed Standby Assistance,1 Person Assist Discharge Recommendations PT Discharge Recommendations Home with Assistance
--- NOTE | 2019-04-01 16:44 | PC.NURSE ---
1645- Pt reports feeling better today, rates pain 4-5/10 at this time. Back drsg CDI with small spot old shadow drainage. Ambulating hallways with PT gait belt only. Rivero patent, draining clear yellow urine. LFA SL. 98%RA, LS clear denies SOB. BT+ denies nausea. Call light in reach.
[2019-04-01 19:35] VITALS: BP 137/74; PULSE 104; RESP 18; TEMP 37.3; O2SAT 97
[2019-04-01] MEDS: SENNOSIDES 8.6 MG TABLET 17.2 MG PO (21:27)
[2019-04-01] MEDS: HYDROMORPHONE 0.5 MG INJ IV (21:27)
[2019-04-02 00:50] VITALS: BP 117/59; PULSE 94; RESP 16; TEMP 36.9; O2SAT 99
[2019-04-02] MEDS: hydrOXYzine pamoate 25 MG CAPSULE PO ×2 (00:55→08:58)
[2019-04-02] MEDS: OXYCODONE IR 5 MG TABLET 10 MG PO ×3 (00:55→08:54)
--- NOTE | 2019-04-02 01:48 | PC.NURSE ---
Addendum entered by Lisha Richards R.N. 04/02/19 04:25: Patient found earlier having gotten back into bed independently so bed alarm was activated. Now awake and reminded to call for assistance when out of bed. Refused SCD's. States pain is a deep ache and rates severity as 4/10; medicated with Oxycodone. Original Note: Patient is alert and oriented. Breath sounds CTA with RA sat of 99%. HRR. Denies nausea. BT present and is passing flatus. Indwelling catheter is patent; urine clear yellow. Patient agreeable to having catheter d'cd later this morning. Has been sleeping in recliner as states bed is uncomfortable. Is able to move himself. When up uses walker and 1 assist; denies weakness or unsteadiness. Dressing is intact but appears to have some shadow drainage. States pain is currently 5/10 so medicated with Oxycodone + Vistaril. Refusing SCD's despite information re: DVT prevention; reminded to ankle wave. Fall risk score is moderate but calls appropriately for assistance.
[2019-04-02 05:30] VITALS: BP 123/65; PULSE 84; RESP 16; TEMP 37.1; O2SAT 98
--- NOTE | 2019-04-02 07:24 | PM.PNPO.1 ---
Subjective Subjective Date Patient Seen: 04/02/19 Time Patient Seen: 07:24 Interval history: Is doing very well. Pain about 4/10 only across the back. Legs are fine. Independent with mobility. Exam Vital Signs (past 8 hours): - 04/02/19 00:50 04/02/19 05:30 Temperature 98.5 F 98.8 F Pulse Rate 94 H 84 Respiratory Rate 16 16 Blood Pressure 117/59 L 123/65 Pulse Oximetry 99 98 Oxygen Delivery Method Room Air Oxygen Flow Rate 0 Const Orientation: alert and oriented x3 Back/Spine/Pelvis Other: CDI. 5/5 motor both lower extremities Objective Labs Result Diagrams: 04/01/19 05:40 Assessment & Plan Post-op Postoperative Procedures: Procedures Operation Date: 03/31/19 07:45 Actual Procedures Side Surgeon p L5S1 laminectomy & instrumentated fusion (TLIF) w/ bone graft Amadeo Capellan MD He is doing well. He is ready for discharge Quality VTE Deep Vein Thrombosis/Pulmonary Embolism Present on Admission: No
--- NOTE | 2019-04-02 07:25 | PM.DS.1 ---
History of Present Illness History of Present Illness Date Patient Seen: 04/02/19 Time Patient Seen: 07:25 Chief complaint: [id number] Narrative: 43-year-old male with spinal stenosis with significant left leg pain. He had failed conservative management with epidural injections and therapy and medication. Discharge Providers Provider Date of admission: 03/31/19 06:08 Discharge Date: 04/02/19 Primary care physician: Otilia Rider DO Consults: 03/31/19 13:09 Consult to Occupational Therapy Evaluate & Treat Comment: Physician Instructions: Evaluate and treat Consult to Physical Therapy Evaluate & Treat Comment: Physician Instructions: Evaluate and Treat Discharge provider: Amadeo Capellan MD Summary Hospital Course Discharge Diagnosis: Lumbar stenosis with radiculopathy Hospital Course: He was brought to the operating room on 03/31/2019 where he underwent a L5-S1 TLIF with laminectomy and fusion. He did very well postoperatively. Good pain control. All of his leg symptoms had resolved. By postoperative day 2. He was independent with mobility and felt ready to go home. Status at Discharge Cognitive/behavioral status at discharge: oriented Functional status at discharge: uses cane/walker Overall status at discharge: patient is progressing back to baseline Exam Vital Signs (past 8 hours): - 04/02/19 00:50 04/02/19 05:30 Temperature 98.5 F 98.8 F Pulse Rate 94 H 84 Respiratory Rate 16 16 Blood Pressure 117/59 L 123/65 Pulse Oximetry 99 98 Oxygen Delivery Method Room Air Oxygen Flow Rate 0 Const Orientation: alert and oriented x3 Back/Spine/Pelvis Other: CDI. 5/5 motor both lower extremities Objective Labs Result Diagrams: 04/01/19 05:40 Discharge Plan Discharge Plan Patient Disposition: Home Discharge comment: f/ 1.5 wks Discharge Med Rec/Prescriptions Prescriptions: New celecoxib [Celebrex] 200 mg Capsule 200 mg PO BID PRN (Reason: pain) Qty: 60 RF: 0 docusate sodium [DOK] 100 mg Capsule 100 mg PO BID PRN (Reason: constipation) Qty: 30 RF: 0 hydroxyzine pamoate 25 mg Capsule 25 mg PO Q4HR PRN (Reason: spasms) Qty: 20 RF: 0 oxycodone 5 mg Tablet See Rx Instructions .ROUTE .COMPLEX PRN (Reason: Pain, Moderate (4-6)) Qty: 30 RF: 0 Continued gabapentin 300 mg capsule 300 mg PO BID Qty: 180 RF: 1 Discontinued oxycodone-acetaminophen 7.5-325 mg tablet 1 tab PO Q6H PRN (Reason: pain) Qty: 120 RF: 0 ibuprofen 200 mg Tablet 400 mg PO BID PRN (Reason: Pain) RF: 0 Follow up/Referrals: Otilia Rider DO [Primary Care Provider] - Provider Discharge Instructions Diet: Diet as Tolerated Activity: limited BLT 10 lbs Skin/Wound/Dressing Care Report to your healthcare provider any signs of infection, such as:: chills, fever, night sweats, increased pain, unusual drainage and unusual redness Dressing: may change and shower POD#5 Visit Report/Discharge Packet Instructions: DI for Transforaminal Lumbar Interbody Fusion Stand Alone Forms: Surgery Discharge Discharge Data Primary Care Provider: Otilia Rider Quality VTE Deep Vein Thrombosis/Pulmonary Embolism Present on Admission: No
[2019-04-02] MEDS: DOCUSATE 100 MG CAPSULE PO (08:55)
[2019-04-02] MEDS: GABAPENTIN 300 MG CAPSULE PO (08:55)
[2019-04-02] MEDS: CELECOXIB 200 MG CAPSULE PO (08:55)
[2019-04-02 09:00] VITALS: BP 121/69; PULSE 116; RESP 18; TEMP 37.1; O2SAT 97
--- NOTE | 2019-04-02 10:31 | PT.IPTN ---
Current Diagnoses Spinal stenosis, lumbar region with neurogenic claudication (03/31/19) Strain of muscle, fascia and tendon of lower back, subsequent encounter (03/31/19) Surgery Performed Operation Date: 03/31/19 07:45 Actual Procedures p L5S1 laminectomy & instrumentated fusion (TLIF) w/ bone graft - Amadeo Capellan MD Physical Therapy Treatment Note M2 PT-IP Current Condition Start: 03/31/19 14:21 Freq: NEEDED Status: Active Protocol: Document 03/31/19 16:48 AW (Rec: 03/31/19 17:08 AW [email or web address]) Physical Therapy Current Condition Current Condition Evaluation Date 03/31/19 Treatment Diagnosis s/p L5-S1 laminectomy, TLIF Precautions Lumbar Precautions Log Roll,No Twisting,Limit Bending,Lifting Restriction of 10 lbs,Gait Belt above Incisional Area Weight Bearing Status Weight Bearing Status Full Weight Bearing M3 PT-IP Subjective Start: 03/31/19 14:21 Freq: NEEDED Status: Active Protocol: Document 04/02/19 10:20 AW (Rec: 04/02/19 10:30 AW [email or web address]) Subjective Physical Therapy Visit Type Type Treatment Note Visit Start Time 09:15 Visit Stop Time 09:30 Total Visit Minutes 15 Physical Therapy Visit Comments Patient Comments Pt found standing with FWW in room with 5/10 pain Therapy Pain Assessment Pain When Pain Assessed During Mobility Pain Present Pain Present Pain Reported Location Lower Back Intensity 5 Scale Used Numeric (1 - 10) Pain Management Techniques Modification of Treatment,Re- positioning,Timing of Activity with Medications M4 PT-IP Mobility and Gait Start: 03/31/19 14:21 Freq: NEEDED Status: Active Protocol: Document 04/02/19 10:20 AW (Rec: 04/02/19 10:30 AW [email or web address]) PT-Transfer Assessment Sit to and From Stand Sit to and from Stand Standby Assistance,Use of Upper Extremities Equipment Transfer Assistive Device Gait Belt,Front Wheeled Walker Orthotic/Prosthetic Devices or Brace: No Transfers Transfer Destination Chair Transfer Technique pt ambulated with FWW Transfer Ability Level of Assist Standby Assistance Comments Mobility Comments Pt is aware of feeling more unsteady, prefers to work with FWW today Gait Assessment Gait Gait Assistance Required: Standby Assistance Distance (Feet) 300 Able to Maintain Weight Bearing Status Yes During Gait Assistive Devices Assistive Device Gait Belt,Front Wheeled Walker Orthotic/Prosthetic Devices or Brace: No Gait Deviations General Gait Pattern Decreased Stride Length, Decreased Feet Clearance Factors Limiting Gait Function Factors Limiting Gait Function Decreased Activity Tolerance, Decreased Strength,Pain Stair Climbing Assessment Evaluation Level of Assist On Stairs Standby Assistance Devices Stair Climbing Assistive Devices Left Railing Technique/Endurance Stair Climbing Direction Ascend and Descend Stair Climbing Technique Step to Step Number of Steps Climbed 3 Stair Climbing Set # Repetitions (reps) 2 Comments Stair Climbing Comments SBA for stairs with unilateral rail. No reported increase in pain M5 PT-IP Objective Assessments Start: 03/31/19 14:21 Freq: NEEDED Status: Active Protocol: Document 03/31/19 16:48 AW (Rec: 03/31/19 17:08 AW [email or web address]) Orientation Orientation/Cognition Level of Alertness Alert Orientation Name,Date,Place,Situation Language Function Ability No Deficits Noted Safety Awareness Understands Safety Issues Memory Description No Deficits Noted Gross Range of Motion Upper Extremity ROM Assessment Within Functional Limits Lower Extremity ROM Assessment Within Functional Limits Strength Upper Extremity Strength Assessment Within Functional Limits Lower Extremity Strength Assessment Within Functional Limits Coordination Assessment Gross Coordination Gross Coordination WNL Sensation Assessment Sensation Gross Sensation WNL Comments Sensation Comments No deficits on exam. M6 PT-IP Treatment Start: 03/31/19 14:21 Freq: NEEDED Status: Active Protocol: Document 04/02/19 10:20 AW (Rec: 04/02/19 10:30 AW [id number]) Physical Therapy Treatment Education Education Provided Precautions M7 PT-IP Assessment and Plan Start: 03/31/19 14:21 Freq: NEEDED Status: Active Protocol: Document 04/02/19 10:20 AW (Rec: 04/02/19 10:30 AW [id number]) PT Summary Assessment and Plan Summary Assessment Summary Pt aware of feeling unsteady ( likely due to pain meds) this morning. He appropriately chose to transfer and ambulate with FWW. He does have a FWW at home for personal use. Educated pt on FWW adjustment and proper height. His will be home full-time until Saturday to assist. Other family will also be in and out to help. Pt safe for discharge to home when medically stable. Pt has met all functional goals. He is safe to ambulate the halls using FWW and gait belt with nursing. Goals Bed Mobility Goal Standby Assistance Transfer Goal Standby Assistance Gait Goal Standby Assistance,Front Wheel Walker Gait Distance 150 Other Goals up/down 5 steps with unilateral railing (either side) SBA Days to Meet Goals 1 Frequency of Treatment Frequency Of Treatment Discharge Recommendations To Nursing Amount of Assist Needed Standby Assistance,1 Person Assist Discharge Recommendations PT Discharge Recommendations Home with Assistance, Outpatient PT
--- NOTE | 2019-04-02 10:37 | OT.IP.TRT ---
Current Diagnoses Spinal stenosis, lumbar region with neurogenic claudication (03/31/19) Strain of muscle, fascia and tendon of lower back, subsequent encounter (03/31/19) Surgery Performed Operation Date: 03/31/19 07:45 Actual Procedures p L5S1 laminectomy & instrumentated fusion (TLIF) w/ bone graft - Amadeo Capellan MD Occupational Therapy Treatment Note M3 OT- IP Subjective and Pain Start: 04/01/19 08:23 Freq: Status: Active Protocol: Document 04/02/19 10:37 PJM (Rec: 04/02/19 13:59 PJM [email or web address]) OT- Subjective Occupational Therapy Visit Type Type Treatment Note Visit Start Time 09:50 Visit Stop Time 10:37 Total Visit Minutes 47 Occupational Therapy Visit Comments Patient Comments A shower would be good. 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 and golf OT Pain Assessment Pain When Pain Assessed After Treatment Pain Present Pain Present Pain Reported Location Lower Back Intensity 4 Description Aching,Acute Pain Behaviors Facial Grimacing,Guarding Management Techniques Distraction,Re-positioning, Timing of Activity with Medications M4 OT- IP ADL's Start: 04/01/19 08:23 Freq: Status: Active Protocol: Document 04/02/19 10:37 PJM (Rec: 04/02/19 13:59 PJM [id number]) OT ERN-[place] General Evaluation Self-Feeding Ability Independent OT ADL-Grooming General Evaluation Grooming Ability Independent Comments OT Grooming Comments standing at sink after education re: body mechanics OT ADL-Oral Care General Eval Oral Care Ability Independent Devices Oral Care Devices Toothbrush Comments Oral Care Comments standing at sink after education re: body mechanics OT ADL-Dressing General Eval Upper Body Dressing Ability Independent Lower Body Dressing Ability Independent Areas Needing Assistance Pull-Over Shirt,Underpants/ Brief,Pants/Shorts,Socks,Shoes Assistive Devices Dressing Assistive Devices Long Handled Shoe Horn,Bench Examiner ,Sock Aid Comments OT Dressing Comments Pt using adaptive equipt independently after education completed. OT ADL-Toileting General Evaluation Toileting Ability Independent Comments OT Toileting Comments provided education re: body mechanics for shanice care OT ADL-Bathing Bathing Type Bathing Type Shower General Evaluation Bathing Ability Standby Assistance Areas Needing Assistance Retrieving/Setting Up Items Devices Bathing Equipment Long Handled Sponge or [place], Hand Held Shower Sprayer Comments OT Bathing Comments Pt able to stand for entire shower. Provided education re: body mechanics. M6 OT- IP Functional Cognition Start: 04/01/19 08:23 Freq: Status: Active Protocol: Document 04/02/19 10:37 PJM (Rec: 04/02/19 13:59 PJM [id number]) Cognitive Factors Limiting Selfcare Function Cognitive Ability Level of Alertness Alert Patient Orientation Name,Age,Birthday,Month,Date, Year,Day of Week,Place, Situation Attention Span Ability Capable of Focused Attention, Capable of Sustained Attention Ability to Follow Commands Able to Follow Multi-Step Commands Memory Description No Deficits Noted Safety Awareness No Deficits Noted Cognitive Comments Cognitive Assessment Comments Pt verbalizes and demonstrates understanding of lumbar spine precautions and adapted ADL techniques M7 OT- IP Mobility and Balance Start: 04/01/19 08:23 Freq: Status: Active Protocol: Document 04/02/19 10:37 PJM (Rec: 04/02/19 13:59 PJ [email or web address]) OT-Transfer Assessment Sit to and From Stand Sit to and from Stand Independent Technique Transfer Destination Chair,Shower Stall Transfer Technique Stand Step Pivot Devices Transfer Assistive Devices None Comments Mobility Comments Pt independent with shower stall transfer with use of grab bar as per home set up OT- Gait Assessment Gait Gait Assistance Required: Independent Distance (Feet) 20 Assistive Devices Assistive Device None Comments Gait Ability Comments Pt walking short distances in room without a device and no LOB noted. OT- Balance Assessment Sitting Balance and Reactions Static Sitting Balance Ability Good Dynamic Sitting Balance Ability Good Standing Balance and Reactions Static Standing Balance Ability Good Dynamic Standing Balance Ability Good Comments Other Balance Tests/Deviations/Treatment during shower and lower body : dressing M9 OT- IP Assessment and Plan Start: 04/01/19 08:23 Freq: Status: Active Protocol: Document 04/02/19 10:37 PJM (Rec: 04/02/19 13:59 PJ [id number]) OT Summary Assessment and Plan Potential Rehabilitation Potential Excellent Summary OT Impairments Pain Progress Towards Goals Safe For Discharge,Goals Met Assessment Summary All OT goals achieved for this admission. Pt plans to d/c home today with 24 hr assist from for first 3 days, then will return to work. No further OT services needed. Frequency of Treatment Frequency Of Treatment Discharge Discharge Recommendations OT Discharge Recommendations Home with Assistance Home Equipment Needs none
--- NOTE | 2019-04-02 10:37 | PC.NURSE ---
Addendum entered by Dyan Lyn R.N. 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 Addendum entered by Dyan Lyn R.N. 04/02/19 13:54: DC - reviewed dc instructions with pt and spouse, scripts provided, belongings gathered, including, Addendum entered by Dyan Lyn R.N. 04/02/19 10:55: INTEG - after pt showered w/OT, removed barrier dsg, does have a thin line redness at top of dsg from the opsite, no open areas noted, parallel sutures incisions and steristrips intact, no drainage, replaced with coversite dsg. Original Note: AM NOTE - lying bed, states pain incr to 6-7 on scale 0/10, denies nausea, discussed constipation and narcotics, did have bm this am, after breakfast given 10mg oxycodone and 650mg tylenol with 25mg po vistaril prior to mobilization with phys therapy, after ambul hallway w/PT, ret chair, positioned comfortably, pt has voided adequately after holloway admin, plan to dc home this am.
[2019-04-02] MEDS: SODIUM CHLORIDE 0.9% FLUSH 10 ML IV (10:44)
== END 2019-04-02 13:57 | disposition home or self-care (01) | DRG 455 ==
PROVIDERS: Admitting Provider Orthopaedic Surgery; Family Provider Family Medicine; PCP Family Medicine; Visit Provider Orthopaedic Surgery
PROC: 0SG30AJ Fusion of Lumbosacral Joint with Interbody Fusion Device, Posterior Approach, Anterior Column, Open Approach (ICD-10-PCS; principal; 2019-03-31 07:45)
DX: M48.062 Spinal stenosis, lumbar region with neurogenic claudication (principal); Z87.891 Personal history of nicotine dependence
CPT/HCPCS: 36415; 72100; 76000; 85014; 85018; 94762; 97116; 97161; 97165; 97530; 97535; C1776; J0330; J0595; J0690; J1100; J1170; J2274; J2405; J2704; J3010

== ENCOUNTER → 2024-07-14 14:09 | Outpatient (CLI) | payer OTHER, SELFPAY ==
[2019-03-31 13:28] VITALS: BMI 22.6
[2024-07-14 14:31] LABS: Add Manual Diff / Slide Review NO; Basophils Absolute Auto 0 /uL (0-100); Basophils Percent Auto 0.4 % (0-2); Eosinophils Absolute Auto 100 /uL (0-450); Eosinophils Percent Auto 0.9 % (2-4); Hemoglobin 14.5 g/dL (13.5-17.5); Lymphocytes Absolute Auto 1700 /uL (1100-4500); Lymphocytes Percent Auto 20.4 % (25-40); Mean Corpuscular HGB Conc 33.8 % (30-36); Mean Corpuscular Hemoglobin 29.4 PG (26-34); Mean Corpuscular Volume 86.8 fL (80-100); Monocytes Absolute Auto 600 /uL (0-900); Neutrophils Absolute Auto 5900 /uL (1500-7000); Neutrophils Percent Auto 71.3 % (50-75); Platelet Count 263 X10^3/uL (150-400); Red Blood Cell Count 4.95 X10^6/uL (4.5-5.9); White Blood Cell Count 8.3 X10^3/uL (4.5-11.0)
[2024-07-14 14:50] LABS: Alanine Aminotransferase 30 IU/L (<50); Albumin 4.6 g/dL (3.5-5.0); Albumin Globulin Ratio 1.7 (1.0-2.8); Alkaline Phosphatase 52 U/L (38-126); Aspartate Aminotransferase 28 IU/L (17-59); BUN Creatinine Ratio 16.7 (6-22); Bilirubin Total 0.5 mg/dL (0.2-1.3); Blood Urea Nitrogen 13 mg/dL (9-20); Calcium 9.3 mg/dL (8.4-10.2); Carbon Dioxide 29 mmol/L (22-32); Chloride 101 mmol/L (98-107); Estimated Glomerular Filt Rate > 60 mL/min (>60); Globulin 2.7 g/dL (1.7-4.1); Glucose 85 mg/dL (70-100); HEMOLYSIS < 15 (0-50); Potassium 4.3 mmol/L (3.4-5.1); Sodium 136 mmol/L (137-145); Total Protein 7.3 g/dL (6.3-8.2)
[2024-07-14 15:20] LABS: TSH w/ Reflex to FT4 0.23 uIU/mL (0.47-4.68)
[2024-07-14 15:45] LABS: Free T4, Direct Thyroxine 1.23 ng/dL (0.78-2.19)
== END ==
PROVIDERS: PCP Family Medicine; Referring Provider Family Medicine; Visit Provider Family Medicine
DX: F19.90 Other psychoactive substance use, unspecified, uncomplicated (principal); M54.16 Radiculopathy, lumbar region
CPT/HCPCS: 36415; 80053; 84439; 84443; 85025